=== PATIENT | female | born 1935 | race Caucasian/White ===

== ENCOUNTER 2016-11-16 12:49 | Emergency (ER) | payer MEDICARE, BC ==
[2016-11-16 13:05] VITALS: BP 181/90
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
--- NOTE | 2016-11-16 14:44 | CR ---
Right femur: 2 views of the right femur were obtained. Comparison: No previous study. Intramedullary chuck is identified within the femur. Vascular calcification is seen. 2 cannulated screws are noted within the right hip. Previous fracture within the right hip appears to have healed. Osteopenia is present. Degenerative cyst is noted within the patella. Mild diffuse joint space narrowing is seen within the right hip. Impression: 1. Findings which are felt to be incidental as described above. 2. Nothing acute is appreciated on 2 view right femur study. Diagnostic code #2
--- NOTE | 2016-11-16 14:44 | CR ---
Pelvis: AP view of the pelvis was obtained. Comparison: No previous study. Old healed hip fracture is noted on the right side with orthopedic hardware. Left hip prosthesis is noted. Heterotopic bone is noted off the lateral left hip. Bony structures are osteopenic. Slight cortical irregularity is identified within the superior pubic ramus near the pubic symphysis suspicious for fracture. Possible fracture within the inferior pubic ramus which is not quite as certain. No additional bony abnormality is appreciated. Impression: 1. Findings suspicious for superior pubic ramus fracture near the pubic symphysis on the right side. 2. Questionable nondisplaced fracture within the inferior right pubic ramus. 3. Other incidental findings. Diagnostic code #3
[2016-11-16] MEDS ORDERED: Ondansetron 4 MG/2 ML SDV IVPUSH ONE ×2 (15:17→17:15)
[2016-11-16] MEDS ORDERED: HYDROmorphone 0.5 MG/0.5 ML Syringe IVPUSH ONE ×2 (15:17→17:16)
[2016-11-16] MEDS ORDERED: NS + KCl 20mEq/L 1,000 ML IV SCH (15:30)
--- NOTE | 2016-11-17 18:24 | CT ---
CT pelvis Technique: Multiple axial sections were obtained through the pelvis. Reconstructed coronal and sagittal images were reviewed. Comparison: Previous pelvis x-ray of 11/16/16. Findings: Slightly comminuted fracture with mild displacement is seen within the superior pubic ramus near the pubic symphysis. Small fracture is noted within the inferior right pubic ramus which is nondisplaced. Small fracture also noted within the inferior left pubic ramus which is nondisplaced. Small fracture which is nondisplaced noted within the superior pubic ramus near the pubic symphysis. On the coronal images there is a minimal fracture being seen within the inferior right sacrum. Left hip prosthesis is noted. Old right hip fracture is noted which appears healed. Orthopedic hardware is noted within the right hip. Soft tissue hematomas are identified on the right side which push the bladder to the left side. This area of hemorrhage is rather ill-defined and actual measurements are difficult to make but are around 10 cm. Degenerative change partially visualized within the spine. Impression: 1. Multiple pelvic fractures as noted above. 2. Pelvic hematoma on the right side pushing the bladder to the left side. Diagnostic code #5 Agree with preliminary report issued by [facility] ([facility] preliminary report dictated on 11/16/16, 5:09 PM Central Time)
== END 2016-11-16 17:55 ==
LOC: JD.ED 12:49 → SUPCPDRO 12:49 → JD.ED 17:55
DX: S32.591A Other specified fracture of right pubis, initial encounter for closed fracture (principal); S32.10XA Unspecified fracture of sacrum, initial encounter for closed fracture; Z79.899 Other long term (current) drug therapy; Z79.82 Long term (current) use of aspirin; Z88.6 Allergy status to analgesic agent; W19.XXXA Unspecified fall, initial encounter
CPT/HCPCS: 36415; 51702; 72170; 72192; 73552; 80053; 81001; 85014; 85018; 85025; 85610; 85730; 86850; 86900; 86901; 96361; 96374; 96375; 96376; 99285; J1170; J2405; J3480

== ENCOUNTER 2020-07-21 14:18 | Emergency (ER) | payer MEDICARE, BC ==
--- NOTE | 2020-07-21 14:53 | EDM.PDOC ---
ED HPI GENERAL MEDICAL PROBLEM - General Chief Complaint: Cardiovascular Problem Stated Complaint: LOW PULSE NEEDS PACEMAKER SENT BY DR ALBA Time Seen by Provider: 07/21/20 15:00 Source of Information: Reports: Patient History Limitations: Reports: No Limitations - History of Present Illness INITIAL COMMENTS - FREE TEXT/NARRATIVE: 85-year-old female presents to the ED at the request of her primary care physician Dr. Alba . She attended the clinic today for blood pressure review and low heart rate. Her daughter had recognize that her heart rate was in the 40s -2 days ago and thus had stopped her metoprolol succinate 25mg medication which she has been on for a long period of time. Her heart rate was still found to be in the 40s and ECG performed there showed a 2-[address] Pillai has spoken with Dr. Bernal water main pipe layer at [facility] in [place] who specializes in the electrophysiology of the heart suggested that she come to [facility] in [place] for admission for potential pacemaker insertion. The patient reports that she is a little weak in her legs compared to normal. It is obvious to me that she is working hard at rest to breathe. She denies cough or sputum production. She does admit to mild PND the last 2 days. She appreciates also slight swelling in both lower extremities which she does not usually have. She denies feeling dizzy or lightheaded. She is has known valvular heart disease. She has had no central chest pain to suggest myocardial infarction. She has a decreased appetite over the last couple of days. Was tested at the clinic today with a rapid Covid test and proved to be negative. She never did have Covid illness. She has received both of her COVID-19 vaccinations. Onset: Gradual Onset Date: 07/14/20 Duration: Day(s):, Getting Worse Location: Reports: Generalized (Dyspnea on minimal exertion weakness in lower extremities.) Quality: Reports: Other (Eyes any central chest pain with bradycardia.) Severity: Mild Improves with: Reports: Rest Worsens with: Reports: Movement (Shortness of breath is worse with walking as is the weakness in her lower extremities.) Context: Reports: Other (Identified to have a bradycardia in the 40s and ECG revealed sinus rhythm with a 2-1 conduction delay). Denies: Activity, Exercise, Lifting, Sick Contact, Trauma Associated Symptoms: Reports: Cough, Loss of Appetite, Malaise, Shortness of Breath, Weakness. Denies: Confusion (.), Chest Pain, cough w sputum, Diaphoresis, Fever/Chills, Headaches, Nausea/Vomiting, Rash, Seizure, Syncope Treatments WHITE LEAD FILTERER: Reports: Other (see below) (Particular in her lower extremities. Only change in medications is the discontinuation of metoprolol succinate 25 mg a day 2 days ago.) back Pain Score (Numeric/FACES): 4 - Related Data Allergies Allergy/AdvReac Type Severity Reaction Status Date / Time ibuprofen AdvReac Stomach Verified 07/21/20 16:17 Ache Home Meds: Home Meds Acetaminophen [Tylenol] 325 mg PO Q4HR PRN 11/16/16 [History] Aspirin [Ecotrin EC] 81 mg PO DAILY 11/16/16 [History] Carbamide Peroxide [Debrox 6.5% Otic Soln] 1 drop TOP ASDIRECTED PRN 11/16/16 [History] Cholecalciferol (Vitamin D3) [Vitamin D3] 1,000 units PO DAILY 11/16/16 [History] Cyanocobalamin (Vitamin B-12) [Vitamin B-12] 1,000 mg PO DAILY 11/16/16 [History] Hydrochlorothiazide 12.5 mg PO DAILY 11/16/16 [History] Magnesium Oxide 250 mg PO DAILY 11/16/16 [History] Meloxicam 7.5 mg PO DAILY 11/16/16 [History] Metoprolol Succinate [Toprol Xl] 100 mg PO DAILY 11/16/16 [History] Omeprazole Magnesium [Prilosec Otc] 20 mg PO DAILY 11/16/16 [History] Potassium Chloride [Klor-Con 10] 10 meq PO DAILY 11/16/16 [History] Ramipril [Altace] 10 mg PO BID 11/16/16 [History] Ubiquinol 200 mg PO DAILY 11/16/16 [History] Venlafaxine [Effexor XR] 37.5 mg PO DAILY 11/16/16 [History] Past Medical History HEENT History: Reports: Cataract (Is had both cataracts removed), Other (See Below) ( and intraocular lens implants. Chronic ptosis right upper eyelid but she states her visual acuity is still pretty good with that I not as good is on the left.) Cardiovascular History: Reports: Hypertension Respiratory History: Reports: Sleep Apnea (Been using CPAP machine for many years. She believes more than 10.), Other (See Below) Other Respiratory History: bipap SMUDGER History: Reports: Musculoskeletal History: Reports: Other (See Below) (Patient does have significant scoliosis of the thoracic spine which would give her restrictive lung disease component.) Neurological History: Reports: Neuropathy, Peripheral Psychiatric History: Reports: Anxiety, Depression - Past Surgical History HEENT Surgical History: Reports: Cataract Surgery GI Surgical History: Reports: Colonoscopy Musculoskeletal Surgical History: Reports: Joint Replacement Other Musculoskeletal Surgeries/Procedures:: right hip pinning and left TKR Social & Family History - Tobacco Use Tobacco Use Status *Q: Never Tobacco User - Caffeine Use Caffeine Use: Reports: Coffee - Recreational Drug Use Recreational Drug Use: No - Living Situation & Occupation Living situation: Reports: Occupation: Retired ED ROS GENERAL - Review of Systems Review Of Systems: See Below Constitutional: Reports: Malaise, Weakness, Fatigue, Decreased Appetite. Denies: Fever, Chills, Weight Loss HEENT: Reports: Glasses, Other (Has had bilateral cataract extractions and intraocular lens implants. Does have decreased visual acuity in her right eye. Chronic ptosis right upper eyelid she reports for greater than 6 years.) Respiratory: Reports: Shortness of Breath, Cough. Denies: Wheezing, Pleuritic Chest Pain, Sputum, Hemoptysis (Occasional nonproductive cough) Cardiovascular: Reports: Blood Pressure Problem, Dyspnea on Exertion (Trace of edema both lower extremities over the last week.), Edema, Other (Mild PND the last 2 nights.). Denies: Chest Pain, Claudication (Chronic systolic hypertension), Palpitations ( Increased dyspnea on minimal exertion over the last week.) Endocrine: Reports: Fatigue GI/Abdominal: Reports: Constipation : Reports: Frequency, Incontinence (Dress and urge components.), Urgency. Denies: Dysuria Musculoskeletal: Reports: Neck Pain, Shoulder Pain, Back Pain, Joint Pain (Bilateral total hip replacements. Mild bilateral knee pain) Skin: Reports: No Symptoms Neurological: Reports: Difficulty Walking (Her lower extremities.), Weakness. Denies: Confusion, Dizziness, Headache, Pre-Existing Deficit, Seizure, Syncope, Tremors, Trouble Speaking ( Due to weakness in her legs.), Change in Speech, Gait Disturbance Psychiatric: Reports: No Symptoms Hematologic/Lymphatic: Reports: No Symptoms Immunologic: Reports: No Symptoms ED EXAM, GENERAL - Physical Exam Exam: See Below Exam Limited By: Other (Patient blood pressure was elevated at 220/82. It did come down to 180/71. She is primarily has systolic hypertension.) General Appearance: Alert, WD/WN, Mild Distress, Other (Mildly tachypneic at re st. 20/min appears to be working hard to breathe. Temperature was 35.9 which is likely inaccurate. Heart rate was anywhere between 40 and 50/min. Heart rate is irregular irregular due to a variable conduction block primarily 2-1 AV conduction block. ) Eye Exam: Bilateral Eye: Normal Inspection (No scleral icterus no blepharal pallor. She has had bilateral cataract extractions and intraocular lens implants. She does have a chronic ptosis of her right upper eyelid.), PERRL Throat/Mouth: Normal Inspection, Normal Lips, Normal Oropharynx Head: Atraumatic Neck: Normal Inspection, Limited Range of Motion, Tender Lateral. No: Full Range of Motion, Carotid Bruit, Lymphadenopathy (L), Lymphadenopathy (R), Thyromegaly Respiratory/Chest: Lungs Clear, No Accessory Muscle Use, Respiratory Distress (Apnea at rest 20-24 min.), Decreased Breath Sounds, Other (Mildly decreased breath sounds to both bases by about 20%. Patient does have significant scoliosis of her thoracic spine which would create a restrictive lung disease component.) Cardiovascular: Normal Peripheral Pulses, No Gallop, No Murmur, No Rub, JVD (3 cm below her right angle of her mandible), Bradycardia (Heart rate is between 40 and 50/min irregular irregular with a variable block primarily a 2-1 AV conduction block.), Irregularly Irregular. No: Regular Rate, Rhythm, No Edema Peripheral Pulses: 2+: Carotid (L), Carotid (R), Posterior Tibial (L), Posterior Tibial (R), Dorsalis Pedis (L), Dorsalis Pedis (R) GI/Abdominal: Normal Bowel Sounds, Soft, Non-Tender, No Organomegaly, No Abnormal Bruit, No Mass, Pelvis Stable, Tender (No surgical scars tender to deep palpation left lower quadrant), Other. No: Guarding ( over the sigmoid colon.), Rigid, Rebound Back Exam: Decreased Range of Motion, Other. No: Full Range of Motion (Moderate kyphosis of the thoracic spine which would create a restrictive lung disease component.) Extremities: Pedal Edema (She does have 2-3+ pitting edema of the left lower extremity up to the mid tib-fib. 2+ on the right side.), Other (Patient has had bilateral total hip replacement. She has evidence of osteoarthritic changes in both knees) Neurological: Alert, Oriented, CN II-XII Intact, Normal Cognition, No Motor/Sensory Deficits Psychiatric: Normal Affect, Normal Mood Skin Exam: Warm, Dry, Intact, Normal Color, No Rash #1 Interpretation EKG Date: 07/21/20 Time: 14:40 Rhythm: Other (Sinus rhythm with a variable conduction delay. Primarily 2-1 conduction delay.) Rate (Beats/Min): 49 [place]: Normal P-Wave: Enlarged (Left atrial hypertrophy) QRS: RBBB ST-T: Other (Baseline wanders a great deal) QT: Normal EKG Interpretation Comments: Abnormal ECG Course - Vital Signs Last Recorded V/S: Last Vital Signs Temp 36.6 C 07/21/20 18:15 Pulse 51 L 07/21/20 18:15 Resp 16 07/21/20 18:15 BP 200/76 H 07/21/20 18:15 Pulse Ox 96 07/21/20 18:15 - Orders/Labs/Meds Orders: Active Orders 24 hr Category Date Time Status Chest 1V Frontal [CR] Stat Exams 07/21/20 14:52 Taken EKG 12 Lead [EK] Stat Ther 07/21/20 15:37 Ordered Labs: Laboratory Tests 07/21/20 07/21/20 07/21/20 Range/Units 14:40 14:40 14:40 WBC 6.19 (3.98-10.04) K/mm3 RBC 4.82 (3.98-5.22) M/mm3 Hgb 14.6 (11.2-15.7) gm/dl Hct 45.6 H (34.1-44.9) % MCV 94.6 D (79.4-94.8) fl MCH 30.3 (25.6-32.2) pg MCHC 32.0 L (32.2-35.5) g/dl RDW Std Deviation 44.8 (36.4-46.3) fL Plt Count 166 L (182-369) K/mm3 MPV 9.8 (9.4-12.3) fl Neut % (Auto) 72.7 H (34.0-71.1) % Lymph % (Auto) 14.7 L (19.3-51.7) % [place] % (Auto) 11.6 (4.7-12.5) % Eos % (Auto) 0.6 L (0.7-5.8) Baso % (Auto) 0.2 (0.1-1.2) % Neut # (Auto) 4.50 (1.56-6.13) K/mm3 Lymph # (Auto) 0.91 L (1.18-3.74) K/mm3 [place] # (Auto) 0.72 H (0.24-0.36) K/mm3 Eos # (Auto) 0.04 (0.04-0.36) K/mm3 Baso # (Auto) 0.01 (0.01-0.08) K/mm3 PT 11.6 (9.7-12.0) SECONDS INR 1.09 APTT 27.1 (21.7-31.4) SECONDS Sodium 134 L (136-145) mEq/L Potassium 3.3 L (3.5-5.1) mEq/L Chloride 94 L (98-107) mEq/L Carbon Dioxide 37 H (21-32) mEq/L Anion Gap 6.3 (5-15) BUN 12 (7-18) mg/dL Creatinine 0.7 (0.55-1.02) mg/dL Est Cr Clr Drug Dosing 52.58 mL/min Estimated GFR (MDRD) > 60 (>60) mL/min BUN/Creatinine Ratio 17.1 (14-18) Glucose 124 H (83-115) mg/dL Calcium 9.3 (8.5-10.1) mg/dL Magnesium 1.8 (1.8-2.4) mg/dl Total Bilirubin 0.7 (0.2-1.0) mg/dL AST 36 (15-37) U/L ALT 47 (14-59) U/L Alkaline Phosphatase 57 (46-116) U/L CK-MB (CK-2) 4.6 H (0-3.6) ng/ml Troponin I < 0.017 (0.00-0.056) ng/mL C-Reactive Protein 0.6 (<1.0) mg/dL NT-Pro-B Natriuret Pep (0-450) pg/mL Total Protein 8.0 (6.4-8.2) g/dl Albumin 3.9 (3.4-5.0) g/dl Globulin 4.1 gm/dL Albumin/Globulin Ratio 1.0 (1-2) Urine Color (Yellow) Urine Appearance (Clear) Urine pH (5.0-8.0) Ur Specific [place] (1.005-1.030) Urine Protein (Negative) Urine Glucose (UA) (Negative) Urine Ketones (Negative) Urine Occult Blood (Negative) Urine Nitrite (Negative) Urine Bilirubin (Negative) Urine Urobilinogen (0.2-1.0) Ur Leukocyte Esterase (Negative) Urine RBC (0-5) /hpf Urine WBC (0-5) /hpf Ur Squamous Epith Cells (0-5) /hpf Urine Bacteria (FEW) /hpf Urine Mucus (FEW) /hpf 07/21/20 07/21/20 Range/Units 14:40 16:08 WBC (3.98-10.04) K/mm3 RBC (3.98-5.22) M/mm3 Hgb (11.2-15.7) gm/dl Hct (34.1-44.9) % MCV (79.4-94.8) fl MCH (25.6-32.2) pg MCHC (32.2-35.5) g/dl RDW Std Deviation (36.4-46.3) fL Plt Count (182-369) K/mm3 MPV (9.4-12.3) fl Neut % (Auto) (34.0-71.1) % Lymph % (Auto) (19.3-51.7) % [place] % (Auto) (4.7-12.5) % Eos % (Auto) (0.7-5.8) Baso % (Auto) (0.1-1.2) % Neut # (Auto) (1.56-6.13) K/mm3 Lymph # (Auto) (1.18-3.74) K/mm3 [place] # (Auto) (0.24-0.36) K/mm3 Eos # (Auto) (0.04-0.36) K/mm3 Baso # (Auto) (0.01-0.08) K/mm3 PT (9.7-12.0) SECONDS INR APTT (21.7-31.4) SECONDS Sodium (136-145) mEq/L Potassium (3.5-5.1) mEq/L Chloride (98-107) mEq/L Carbon Dioxide (21-32) mEq/L Anion Gap (5-15) BUN (7-18) mg/dL Creatinine (0.55-1.02) mg/dL Est Cr Clr Drug Dosing mL/min Estimated GFR (MDRD) (>60) mL/min BUN/Creatinine Ratio (14-18) Glucose (83-115) mg/dL Calcium (8.5-10.1) mg/dL Magnesium (1.8-2.4) mg/dl Total Bilirubin (0.2-1.0) mg/dL AST (15-37) U/L ALT (14-59) U/L Alkaline Phosphatase (46-116) U/L CK-MB (CK-2) (0-3.6) ng/ml Troponin I (0.00-0.056) ng/mL C-Reactive Protein (<1.0) mg/dL NT-Pro-B Natriuret Pep 1444 H (0-450) pg/mL Total Protein (6.4-8.2) g/dl Albumin (3.4-5.0) g/dl Globulin gm/dL Albumin/Globulin Ratio (1-2) Urine Color Light yellow (Yellow) Urine Appearance Slt cloudy H (Clear) Urine pH 8.5 H (5.0-8.0) Ur Specific [place] 1.020 (1.005-1.030) Urine Protein 1+ H (Negative) Urine Glucose (UA) Negative (Negative) Urine Ketones Negative (Negative) Urine Occult Blood 2+ H (Negative) Urine Nitrite Negative (Negative) Urine Bilirubin Negative (Negative) Urine Urobilinogen 0.2 (0.2-1.0) Ur Leukocyte Esterase 1+ H (Negative) Urine RBC 30-40 H (0-5) /hpf Urine WBC 20-30 H (0-5) /hpf Ur Squamous Epith Cells 5-10 H (0-5) /hpf Urine Bacteria Many H (FEW) /hpf Urine Mucus Few (FEW) /hpf Meds: Medications Discontinued Medications Generic Name Dose Route Start Last Admin Trade Name Freq PRN Reason Stop Dose Admin Amlodipine Besylate 5 mg 07/21/20 16:33 07/21/20 16:53 Amlodipine 5 Mg Tab PO 07/21/20 16:34 5 mg ONETIME ONE Administration Dextrose/Sodium Chloride 1,000 mls @ 125 mls/hr 07/21/20 15:00 07/21/20 15:45 Dextrose 5%-Normal Saline IV 125 mls/hr ASDIRECTED [facility] Administration - Radiology Interpretation Free Text/Narrative:: 85-year-old female sent to the ED by her primary care physician Dr. Alba. She was to see him today for blood pressure review and his low heart rate. Her daughter recognize that her heart rate was staying in the 40s 2 days ago and therefore her metoprolol succinate 25 mg which was taken daily has been stopped for 2 days. In spite of that this her heart rate remains in the 40s to 50s range. She is working harder to breathe. No crackles heard or rales heard on exam. Mild elevation of jugular venous pulsations noted. She does have significant kyphosis of her thoracic spine creating a restrictive lung disease component. She denies any chest pain. Weakness in her lower extremities with walking and shortness of breath on minimal exertion over the last week. She is also appreciated edema in both lower extremities over the last week worse on the left side as compared to the right. She has occasional nonproductive cough. Examination revealed a heart rate in the 40s with a variable conduction delay. There was a primarily 2-1 conduction delay on ECG. Plan 1 view chest x-ray routine labs to include magnesium and BNP. Dr. Alba has conversed with Dr. Bernal water main pipe layer at [facility] in [place] who requested that she come to [facility] for admission as there was a high suspicion she was going to require pacemaker insertion. - Re-Assessments/Exams Free Text/Narrative Re-Assessment/Exam: 07/21/20 15:40: Portable chest x-ray reveals significant kyphosis of her thoracic spine. Cardiac silhouette is essentially normal. There is no pleural effusions no pneumothorax. There is some statement of COPD. 07/21/20 16:02 White count is normal at 6.19. Differential shows 72.7% neutrophils. Hemoglobin is 14.6 with hematocrit of 45.6. MCV is 94.6. Platelet count is slightly low at 166,000. PT is 11.6 with an INR of 1.09 and a PTT of 27.1. Sodium slightly low at 134 with a potassium of 3.3. Chloride is 94 with a bicarb of 37. This suggest she is a CO2 retainer. Anion gap is 6.3. BUN is 12 with a creatinine of 0.7. Estimated GFR is greater than 60. Glucose is 124. Calcium is 9.3. Magnesium is 1.8. Liver function is normal. CK-MB fraction is mildly elevated at 4.6. Troponin I however is less than 0.017. C- reactive protein is 0.6 BNP is 1444. Total protein is 8.0 with an albumin of 3.9. 07/21/20 16:34 I have contacted the 1 call nurse at [facility] in [place] and she will get back to me once the hospitalist is available for discussion for transfer. Her systolic blood pressure remains elevated anywhere from 1 85- 200 while in the emergency room. Current diastolic is 65. I am going to give her Norvasc 5 mg p.o. to reduce reduce systolic hypertension. This should have no effect on heart rate. 07/21/20 17:31 [facility] in [place] has now called back and there is a bed available for the patient. Patient will be transferred to that facility as soon as an ambulance becomes available which should be shortly. 07/21/20 18:27: Patient is feeling quite constipated. She did push very hard while on the commode but was unable to pass stool at present. I did not proceed with a Fleet enema to help her out as she will be getting an ambulance shortly. She will need to be on some form of laxative or stool softener while in hospital and will require Fleet enema likely tonight. Pushing aggravated her systolic blood pressure and it went back up over 200. The amlodipine 5 mg p.o. did very little to improve her systolic hypertension. She will also require Lasix tonight. It was not given in the ED because of need for ambulance transport which was unclear as to when they were going to arrive. Occasionally she will go back into sinus bradycardia at 56/min without any AV block. This suggests to me that she is still under the influence of beta-keyonna a may return to normal rhythm once the metoprolol succinate is completely out of her system. 07/21/20 19:32 Urinalysis became available after the patient left the department. It reveals slightly cloudy urine with 1+ proteinuria 2+ occult blood and 1+ leukocyte esterase. The micro shows 30-40 red blood cells per high-power field and 20-30 white blood cells per high-power field. Many bacteria appreciated. Urine culture has been ordered. Patient did not receive antibiotics prior to leaving the department. Departure - Departure Time of Disposition: 18:30 Disposition: DC/Tfer to [facility] 02 Reason for Transfer *Q: Other Condition: Fair Clinical Impression: Bradycardia, Mild congestive heart failure, Chronic constipation, Hypokalemia due to excessive renal loss of potassium, Hyponatremia Urinary tract infection Qualifiers: Urinary tract infection type: acute cystitis Hematuria presence: without hematuria Qualified Code(s): N30.00 - Acute cystitis without hematuria Referrals: Calvin Alba MD [Primary Care Provider] - Forms: ED Department Discharge Additional Instructions: Patient transferred to [facility] in [place] after she presented to her primary care physician Dr. Pillai with a slow heart rate and for blood pressure review. Daughter had recognize that her heart rate was in the 40s 3 days ago. She stopped her metoprolol succinate but in spite of this she remains with a heart rate of 40 to 50/min in the ED with a primary 2-1 AV conduction block. She has significant systolic hypertension which is maintained in spite of the bradycardia. She is working hard to breathe and clinically is in mild congestive heart failure. Found to have minimal hyponatremia and mild hypokalemia which is somewhat chronic for her. I suspect that her bradycardia has aggravated her mild chronic congestive heart failure as well. Other problems include chronic constipation and after the patient left the department we identified that she had a urinary tract infection and a culture has been ordered. She will require antibiotics for this. Dr. Bernal human factors ergonomist water main pipe layer felt the patient needed to come to [place] for admission to monitor her heart in case she needed a emergent pacemaker placement. Sepsis Event Note (ED) - Evaluation Sepsis Screening Result: No Definite Risk - Focused Exam Vital Signs: Vital Signs Temp Pulse Resp BP BP Pulse Ox 07/21/20 18:15 36.6 C 51 L 16 200/76 H 96 07/21/20 17:15 55 L 179/67 H 98 07/21/20 16:53 184/62 H 07/21/20 14:37 35.9 C L 51 L 20 220/82 H 95 - My Orders Last 24 Hours: My Active Orders 07/21/20 14:52 Chest 1V Frontal [CR] Stat 07/21/20 15:37 EKG 12 Lead [EK] Stat - Assessment/Plan Last 24 Hours: My Active Orders 07/21/20 14:52 Chest 1V Frontal [CR] Stat 07/21/20 15:37 EKG 12 Lead [EK] Stat
[2020-07-21] MEDS ORDERED: Dextrose 5%-0.9% NaCl 1,000 ML IV SCH (15:00)
[2020-07-21] MEDS ORDERED: amLODIPine 5 MG Tab PO ONE (16:33)
[2020-07-21 18:20] VITALS: BP 200/76; PULSE 51
--- NOTE | 2020-07-24 07:12 | CR ---
Chest: Portable view of the chest was obtained. Comparison: No prior chest imaging is available. Heart size and mediastinum are normal. Questionable pulmonary vascular congestion is noted slightly asymmetric to the left side. Minimal atelectasis is seen with the left base. Bony structures are osteopenic. Degenerative change within the spine with scoliosis. Mild degenerative change is noted within both shoulders. Impression: 1. Findings suspicious for mild CHF which is slightly asymmetric to the left side. 2. Other findings believed to be chronic as noted above. Diagnostic code #3
== END 2020-07-21 18:30 ==
LOC: JD.ED 14:18
DX: N30.00 Acute cystitis without hematuria (principal); R00.1 Bradycardia, unspecified; I11.0 Hypertensive heart disease with heart failure; I50.9 Heart failure, unspecified; K59.09 Other constipation; E87.6 Hypokalemia; G62.9 Polyneuropathy, unspecified; E87.1 Hypo-osmolality and hyponatremia; Z88.6 Allergy status to analgesic agent; Z79.82 Long term (current) use of aspirin; Z79.899 Other long term (current) drug therapy
CPT/HCPCS: 36415; 71045; 80053; 81001; 82553; 83735; 83880; 84484; 85025; 85610; 85730; 86140; 87086; 93005; 99285; A9270; J7042; 87088; 87186; 93010